=== PATIENT | male | born 2000 | race Caucasian/White ===

== ENCOUNTER 2021-12-08 22:21 | Emergency (ER) | payer OTHER, SELFPAY ==
[2021-12-08 22:28] VITALS: BP 174/87; PULSE 82; RESP 18; TEMP 36.5; O2SAT 97; BMI 33.0
--- NOTE | 2021-12-08 22:32 | DI.RAD.S_ITS ---
PROCEDURE: XR ANKLE LT MIN 3V INDICATIONS: injury TECHNIQUE: 3 views of the ankle were acquired. COMPARISON: None. FINDINGS: Bones: There is a curvilinear lucency within the lateral malleolus which may represent a nondisplaced fracture. There is also a corticated ossicle inferior to the lateral malleolus consistent with sequelae of a prior avulsion fracture. Ankle mortise is normally aligned. No suspicious bony lesions. Soft tissues: There is periarticular soft tissue swelling most prominent laterally as well as a tibiotalar joint effusion. Achilles tendon appears intact. IMPRESSION: 1. Suggestion of a nondisplaced fracture in the lateral malleolus. Recommend a repeat study in 7-10 days for further evaluation if clinically indicated. 2. Small corticated avulsion fragment inferior to the lateral malleolus consistent with sequelae of a prior avulsion fracture. 3. Tibiotalar joint effusion and periarticular soft tissue swelling laterally. Dictated by: Miguel Angel Quan M.D. on 12/08/2021 at 23:46 Approved by: Miguel Angel Quan M.D. on 12/08/2021 at 23:48
--- NOTE | 2021-12-08 22:59 | ED_ITS ---
HPI - Extremity Injury (Lower) General Chief Complaint: Extremity Injury, Lower Stated Complaint: Turned left ankle Time Seen by Provider: 12/08/21 22:59 Source: patient Mode of arrival: Wheelchair History of Present Illness HPI Narrative: 21-year-old male daily smoker without significant medical history presents for evaluation of a left ankle injury suffered at work. 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 He denies any obvious pop but has significant pain with ambulation. He denies any numbness, tingling or weakness. He denies any knee or hip injury and is otherwise well and free of complaint. He states that he was still in the process of recovering from another left ankle injury a few weeks ago. He had just flown in from [place] with the hopes of working locally. He denies any head, neck or back pain. He denies any prodromal symptoms contributing to the fall. Related Data Previous Rx's Medication Instructions Recorded hydrocodone 5 mg-acetaminophen 325 1 tab PO Q4-6H PRN #20 tab 12/09/21 mg tablet Allergies Allergy/AdvReac Type Severity Reaction Status Date / Time No Known Drug Allergies Allergy Verified 12/08/21 22:31 Review of Systems Review of Systems Narrative: GENERAL: Denies chills, fatigue, malaise, fever, sweats. HEENT: Denies sinus pain, ear pain, sore throat, difficulty swallowing, dizziness. RESPIRATORY: Denies dyspnea, cough, wheezing, hemoptysis, sputum. CARDIOVASCULAR: Denies chest pain, palpitations, orthopnea, edema, GASTROINTESTINAL: Denies nausea, vomiting, abdominal pain, diarrhea, constipation, melena. : Denies dysuria, frequency, incontinence, hematuria, urinary retention. MUSCULOSKELETAL: See HPI SKIN: Denies rash, skin lesions, or other NEUROLOGIC: Denies weakness, headache, numbness, change in speech, confusion, seizures, incoordination. PSYCHIATRIC: No concerning psychosocial issues. 12 point review of systems is negative except for those stated above Patient History Social History Smoking Status: Current every day smoker Smoking Status: Current every day smoker Substance Use Type: does not use Exam Narrative Exam Narrative: GENERAL: [21] year old patient appears stated age. Well-developed patient, in mild distress. Resting comfortably, complaining of pain in his ankle HEAD: Atraumatic. Normocephalic. EYES: Pupils equal round and reactive. Extraocular motions intact. No scleral icterus. No injection or drainage. ENT: Nose without bleeding, purulent drainage. Throat without erythema, tonsillar hypertrophy or exudate. Airway patent. NECK: Trachea midline. Non tender CARDIOVASCULAR: Regular rate and rhythm without murmurs, gallops, or rubs. RESPIRATORY: Clear to auscultation. Breath sounds equal bilaterally. No wheezes, rales, or rhonchi. GASTROINTESTINAL: Abdomen soft, non-tender, nondistended. EXTREMITIES: Left ankle swelling, most notable over lateral malleolus, no ligamentous instability, no hip, knee, proximal fibula pain or pain with squeeze test. No pain overlying talus and minimal over medial malleolus. Dorsalis pedis pulse is palpable, cap refill less than 2 seconds, patient able to wiggle toes and sensation is intact BACK: Nontender without deformity or crepitance. No flank tenderness. NEURO: AOx3. SKIN: No rash or erythema of visible areas Initial Vital Signs Initial Vital Signs: Vital Signs Temperature 97.7 F 12/08/21 22:28 Pulse Rate 82 12/08/21 22:28 Respiratory Rate 18 12/08/21 22:28 Blood Pressure 174/87 H 12/08/21 22:28 Pulse Oximetry 97 12/08/21 22:28 Procedures Orthopedic Splinting/Casting Injury #1: Side: left Lower Extremity Injury Location: ankle Lower Extremity Immobilizer: boot orthosis Other Orthopedic Equipment: crutches Post splinting neuro exam: intact Post splinting vascular exam: intact Placed by: Nursing Course Orders Ordered: ED Orders 12/08/21 22:32 XR ankle LT min 3V Stat Vital Signs Vital signs: Vital Signs - 8 hr 12/08/21 22:28 Temperature 97.7 F Pulse Rate 82 Respiratory Rate 18 Blood Pressure 174/87 H Pulse Oximetry 97 MDM - Extremity Injury (Lower) Imaging Data Extremity x-ray #1: Radiologist's Impression: Launch?[address] [address] XRay Report Signed Patient: Boris Stockton MR#: [id number] : 2000 Acct:[id number] Age/Sex: 21 / M Date of Service: 12/08/21 Loc: ED Accession Number: [id number] ?? Procedure: XR ankle LT min 3V Ordering Provider: Claudio Leary D.O. PROCEDURE:? XR ANKLE LT MIN 3V ? INDICATIONS:? injury ? TECHNIQUE:? 3 views of the ankle were acquired.? ? COMPARISON:? None. ? FINDINGS:? ? Bones:? There is a curvilinear lucency within the lateral malleolus which may represent a nondisplaced fracture.? There is also a corticated ossicle inferior to the lateral malleolus consistent with sequelae of a prior avulsion fracture.? Ankle mortise is normally aligned.? No suspicious bony lesions.? ? Soft tissues:? There is periarticular soft tissue swelling most prominent laterally as well as a tibiotalar joint effusion.? Achilles tendon appears intact.? ? ? IMPRESSION:? ? 1. Suggestion of a nondisplaced fracture in the lateral malleolus.? Recommend a repeat study in 7-10 days for further evaluation if clinically indicated. ? 2.? Small corticated avulsion fragment inferior to the lateral malleolus consistent with sequelae of a prior avulsion fracture. ? 3. Tibiotalar joint effusion and periarticular soft tissue swelling laterally.? Dictated by: Miguel Angel Quan M.D. on 12/08/2021 at 23:46 ? ? Approved by: Miguel Angel Quan M.D. on 12/08/2021 at 23:48 ? MDM Narrative Medical decision making narrative: Well-appearing 21-year-old male with ankle injury concerning for significant sprain or strain with possible minor nondisplaced fracture. Extensive discussion with patient regarding importance of nonweightbearing, use of splint and crutches and close follow-up. Patient states that he intends to travel back to [place] in short order for definitive care by given information locally for completeness sake. Return precautions discussed and questions answered to his apparent satisfaction Late addition -while patient was in the department I offered pain medications but he declined. Before I was able to complete and sign the note, patient and called a few hours later to discuss and I ended up calling in a prescription for him Discharge Plan Departure Patient Disposition: Home Clinical Impression: Ankle fracture Instructions: DI for Ankle Fracture Activity Restrictions/Additional Instructions: *You have been diagnosed with ankle pain with possible mild fracture ] *What to do: *Please continue to take your regular medications as directed. [ x] New medication prescriptions sent to your pharmacy: [ [facility]] [ ] New medication written as a paper prescription [x] Tylenol and occasional Motrin for pain *Please follow up with [Antoni ] of [facility] in 2-3 days, call for an appointment. Let them know you were seen in the Emergency Department and that we ask that you be seen in follow up. We will electronically transmit a record of today's note if your PCP is in our system *NO WEIGHT BEARING *Return to Emergency Department if you should have any new, worsening or concerning symptoms, such as [worsening pain, significant swelling, cold extremities, numbness, tingling, weakness or other bothersome symptoms Splint Care: Keep splint clean and dry. Elevated affected body part to decrease swelling. OK to use ice pack on the affected body part. Use for 15-20 minutes each time, for 5-6x per day. If you develop worsening pain, numbness, tingling, discoloration of the affected body part, loosen the splint by loosening the SHOBHA wrap, and either see your doctor for an urgent re-assessment, or return to the Emergency Department. Return to the Emergency Department for any new or worsening symptoms. Prescriptions: New hydrocodone-acetaminophen 5-325 mg tablet 1 tab PO Q4-6H PRN (Reason: pain) Qty: 20 0RF Referrals: Aleks Corrales MD [Physician] - Visit Report Forms: Patient Portal/API
[2021-12-09 00:33] VITALS: BP 133/72; PULSE 80; RESP 18; O2SAT 97
== END 2021-12-09 00:35 | disposition home or self-care (01) ==
PROVIDERS: Emergency Provider Emergency Medicine
DX: S82.65XA Nondisplaced fracture of lateral malleolus of left fibula, initial encounter for closed fracture (principal); X50.1XXA Overexertion from prolonged static or awkward postures, initial encounter; Y92.814 Boat as the place of occurrence of the external cause; Y99.0 Civilian activity done for income or pay
CPT/HCPCS: 73610; 99283